=== PATIENT | male | born 1970 ===

== ENCOUNTER → 2021-12-15 08:56 | Outpatient (CLI) | payer OTHER, MEDICAID, SELFPAY ==
[2021-12-15 20:28] LABS: COVID19 - ORCAS (NP or Nasal) Negative (Negative)
== END ==
PROVIDERS: Family Provider Family Medicine; PCP Physician Assistant Medical; Visit Provider Physician Assistant Medical
DX: Z20.822 Contact with and (suspected) exposure to COVID-19 (principal); R09.81 Nasal congestion
CPT/HCPCS: 80305; U0003